=== PATIENT | male | born 1970 | race Caucasian/White ===

== ENCOUNTER 2018-08-07 10:02 | Emergency (ER) | payer BC ==
[~2018-08-07] VITALS: Ht 190.5 cm; Wt 79.0 kg
[2018-08-07 10:11] VITALS: BP 124/71
--- NOTE | 2018-08-07 11:41 | NUR ---
HOARSENESS, COUGH AT NIGHT, COLD SYMPTOMS
== END 2018-08-07 12:25 | disposition home or self-care (01) ==
LOC: ED 10:48
DX: J15.9 Unspecified bacterial pneumonia (principal); J02.9 Acute pharyngitis, unspecified
CPT/HCPCS: 71046; 87081; 87880; 99284